=== PATIENT | male | born 1955 | race Caucasian/White ===

== ENCOUNTER 2025-03-08 14:06 | Outpatient (CLI) | payer MEDICARE ==
[~2025-03-08 14:06] MED LIST: Iopamidol 300 61% 100 ML VIAL FS ONE
[2025-03-08 15:35] LABS: Estimated GFR - POC 72.0
== END 2025-03-08 14:07 | disposition home or self-care (01) ==
LOC: CSHCT 14:06
PROVIDERS: ATTEND Family Medicine
DX: R09.89 Other specified symptoms and signs involving the circulatory and respiratory systems (principal); I95.9 Hypotension, unspecified; Z82.49 Family history of ischemic heart disease and other diseases of the circulatory system; R31.9 Hematuria, unspecified; R14.2 Eructation; E04.1 Nontoxic single thyroid nodule; N28.1 Cyst of kidney, acquired; K59.00 Constipation, unspecified; K44.9 Diaphragmatic hernia without obstruction or gangrene; E04.2 Nontoxic multinodular goiter
CPT/HCPCS: 74178; 76536; 82565; 93880